=== PATIENT | female | born 1965 | race Caucasian/White ===

== ENCOUNTER 2018-09-25 04:27 | Emergency (ER) | payer BC ==
[~2018-09-25] VITALS: Ht 170.2 cm; Wt 94.0 kg
[2018-09-25] MEDS ORDERED: AUGMENTIN500TAB PO (04:55)
[2018-09-25] MEDS ORDERED: IBUPROFEN600 MG PO (04:56)
[2018-09-25] MEDS ORDERED: TRESIBA100 UNIT/M SC (04:59)
[2018-09-25] MEDS ORDERED: LEVOTHYROXIN50 MCG PO (05:00)
[2018-09-25] MEDS ORDERED: LOSARTAN POTASS25 MG PO (05:00)
[2018-09-25] MEDS ORDERED: CRESTOR10 MG PO (05:01)
[2018-09-25] MEDS ORDERED: XIGDUO (05:02)
[2018-09-25 05:31] VITALS: BP 128/71
== END 2018-09-25 05:24 | disposition home or self-care (01) | DRG 607 ==
LOC: ED 04:27
DX: S00.461A Insect bite (nonvenomous) of right ear, initial encounter (principal); L08.9 Local infection of the skin and subcutaneous tissue, unspecified; E11.9 Type 2 diabetes mellitus without complications; W57.XXXA Bitten or stung by nonvenomous insect and other nonvenomous arthropods, initial encounter